=== PATIENT | female | born 1985 | race African-American/Black ===

== ENCOUNTER 2016-09-12 18:28 | Emergency (ER) | payer OTHER ==
[2016-09-12 18:34] VITALS: BP 159/110
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
[2016-09-12] MEDS ORDERED: ACETAMINOPHEN 325 MG TABLET PO ONE (19:01)
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
[2016-09-12] MEDS ORDERED: HYDROCODONE/ACETAMINOPHEN 5-325 MG 6 TAB/DSPK PO PRN (21:27)
== END 2016-09-12 21:30 | disposition home or self-care (01) ==
LOC: ER 18:28
DX: O26.93 Pregnancy related conditions, unspecified, third trimester (principal); R51 Headache; M54.5 Low back pain; R42 Dizziness and giddiness; H53.8 Other visual disturbances; V89.2XXA Person injured in unspecified motor-vehicle accident, traffic, initial encounter; Z3A.00 Weeks of gestation of pregnancy not specified; Z88.2 Allergy status to sulfonamides
CPT/HCPCS: 70450; 72110; 99284

== ENCOUNTER 2017-01-05 21:12 | Emergency (ER) | payer OTHER ==
--- NOTE | 2017-01-05 22:37 | ER Document Report ---
ED General - General Chief Complaint: Vaginal Bleeding Stated Complaint: VAGINAL BLEEDING Time Seen by Provider: 01/05/17 22:24 Notes: Patient is a 31-year-old female presents with complaint of heavy vaginal bleeding. No fevers. Mild abdominal pain that radiates into her right back. She says bleeding is been there for 2 weeks and has been intermittently heavy. She says she has checked 5 tests have all been negative. She does have an IUD in place. IUD is been there for 6 years. It is a 10 year IUD. She does have a previous history of ultrasound. She brought her previous ultrasound results from the past. Does show that she has a 4 cm fibroid in the fundus as well as ovarian cyst. She has no other complaints this time. She has never had abnormal vaginal bleeding before. She says her menstrual periods are usually very regular. She is sexually active. No abnormal discharge. TRAVEL OUTSIDE OF THE [place] IN LAST 30 DAYS: No - Related Data Allergies/Adverse Reactions: AGAPITO Inhibitors Allergy (Verified 01/05/17 21:17) Sulfa (Sulfonamide Antibiotics) Allergy (Verified 01/05/17 21:17) Past Medical History - Social History Smoking Status: Unknown if Ever Smoked Frequency of alcohol use: None Drug Abuse: None Family History: Reviewed & Not Pertinent Patient has suicidal ideation: No Patient has homicidal ideation: No - Past Medical History Cardiac Medical History: Reports: Hx Hypertension Pulmonary Medical History: Reports: Hx Asthma, Hx Bronchitis, Hx Pneumonia Renal/ Medical History: Denies: Hx Peritoneal Dialysis GI Medical History: Reports: Hx Irritable Bowel Past Surgical History: Reports: Hx Section - Immunizations Immunizations up to date: Yes Hx Diphtheria, Pertussis, Tetanus Vaccination: Yes Review of Systems - Review of Systems Notes: My Normal Review Basic REVIEW OF SYSTEMS: CONSTITUTIONAL : Denies fever, chills, or sweats. Denies recent illness. RESPIRATORY: Denies cough, cold, or chest congestion. Denies shortness of breath, difficulty breathing, or wheezing. GASTROINTESTINAL: Denies abdominal pain. Denies nausea, vomiting, or diarrhea. Denies constipation. Last BM: GENITOURINARY: Denies difficulty urinating, painful urination, burning, frequency, or blood in urine. FEMALE GENITOURINARY: Abnormal vaginal bleeding. MUSCULOSKELETAL: Denies neck or back pain or joint pain or swelling. SKIN: Denies rash or skin lesions. HEMATOLOGIC : Denies easy bruising or bleeding. ALL OTHER SYSTEMS REVIEWED AND NEGATIVE. Physical Exam - Vital signs Vitals: Temp Pulse Resp BP Pulse Ox 97.9 F 75 18 130/89 H 97 01/05/17 21:17 01/05/17 21:17 01/05/17 21:17 01/05/17 21:17 01/05/17 21:17 - Notes Notes: General Appearance: Well nourished, alert, cooperative, no acute distress, no obvious discomfort. Well-appearing. Vitals: reviewed, See vital signs table. Eyes: PERRL, EOMI, Conjuctiva clear Neck: Supple, no neck tenderness, No thyromegaly Lungs: No wheezing, No rales, No rhonci, No accessory muscle use, good air exchange bilaterally. Heart: Normal rate, Regular rythm, No murmur, no rub Abdomen: Normal BS, soft, No rigidity, mild suprapubic and left lower quadrant abdominal tenderness palpation., No guarding, no rebound, no abdominal masses, no organomegaly Pelvic : Normal external genitalia. Blood in vaginal vault. No clots. No vaginal laceration seen. No clots seen in cervix. IUD string not seen. Extremities: strength 5/5 in all extremities, good pulses in all extremities, no swelling or tenderness in the extremities, no edema. Skin: warm, dry, appropriate color, no rash Neuro: speech clear, oriented x 3, normal affect, responds appropriately to questions. Course - Re-evaluation Re-evalutation: 01/06/17 01:43 Patient's ultrasound shows multiple fibroids which is probably contributing to her bleeding. Her IUD is also low in the uterus. This could have some contribution to her bleeding. I cannot see the string for IUD on exam. She does have a archeology faculty member that she follows with closely. I will have her call them first thing Sunday morning for reevaluation and for further management of the malpositioned IUD and her continuous bleeding and fibroids. I did talk her length about tranexamic acid. I informed her that this will increase her risk of clotting. I did talked her length about this and she still wants to try the medication. The risk of clotting is low and therefore I think it is okay to attempt this medication which is why did offer. Patient is okay with the risks and wants to go forward with trying medication. He has been prescribed. I encouraged her return to ER immediately if she has heavy bleeding, lightheadedness, dizziness, leg pain, leg swelling, chest pain, shortness of breath, severe headache. Patient agrees with plan will be discharged home. Dictation of this chart was performed using voice recognition software; therefore, there may be some unintended grammatical errors. - Vital Signs Vital signs: Temp Pulse Resp BP Pulse Ox 97.9 F 75 18 130/89 H 97 01/05/17 21:17 01/05/17 21:17 01/05/17 21:17 01/05/17 21:17 01/05/17 21:17 - Laboratory Result Diagrams: 01/05/17 23:10 Laboratory results interpreted by me: 01/05/17 23:10 Hgb 10.7 L Hct 31.2 L RDW 14.1 H Discharge - Discharge Additional Instructions: Your ultrasound showed that you have multiple fibroids. Fibroids will cause abnormal vaginal bleeding. Your IUD is also lower in the uterus which is lower than it is supposed to be. Please call your Tierce Filler Sunday morning to make a close follow up appointment. please bring your Ultrasound report with you so they can determine if the want to readjust your IUD or remove it and replace it. Please return to the ER immediately if you have increase in bleeding, difficulty breathing, light headedness, dizziness, fevers, or feel unwell. As discussed with you the medicine I have prescribed you can put you at a increased risk of blood clots; therefore, it is very important you return to the ER immediately if you have leg pain and swelling, chest pain, difficulty breathing, or severe headache. Prescriptions: Tranexamic Acid 1,300 mg PO TID 4 Days tablet Forms: Return to Work
[2017-01-05 23:19] LABS: ABSOLUTE EOSINOPHILS # (AUTO) 0.1 10^3/uL (0.0-0.6); ABSOLUTE LYMPHOCYTES (AUTO) 3.6 10^3/uL (0.5-4.7); ABSOLUTE MONOCYTES (AUTO) 0.4 10^3/uL (0.1-1.4); ABSOLUTE NEUT (AUTO) 4.2 10^3/uL (1.7-8.2); BASOPHILS % (AUTO) 0.5 % (0-2); EOSINOPHILS % (AUTO) 0.7 % (0-6); HEMATOCRIT 31.2 % (36.0-47.0); HEMOGLOBIN 10.7 g/dL (12.0-15.5); HGB HCT DIFFERENCE 0.9; LYMPHOCYTES % (AUTO) 43.6 % (13-45); MEAN CORPUSCULAR HEMOGLOBIN 28.1 pg (27.0-33.4); MEAN CORPUSCULAR HGB CONC 34.2 g/dL (32.0-36.0); MEAN CORPUSCULAR VOLUME 82 fl (80-97); MONOCYTES % (AUTO) 5.1 % (3-13); RED BLOOD COUNT 3.79 10^6/uL (3.72-5.28); RED CELL DISTRIBUTION WIDTH 14.1 % (11.5-14.0); SEGMENTED NEUTROPHILS % (AUTO) 50.1 % (42-78); WHITE BLOOD COUNT 8.3 10^3/uL (4.0-10.5)
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
[2017-01-06 02:33] VITALS: BP 119/90
== END 2017-01-06 02:34 | disposition home or self-care (01) ==
LOC: ER 21:12
DX: N93.9 Abnormal uterine and vaginal bleeding, unspecified (principal); D25.9 Leiomyoma of uterus, unspecified; R10.9 Unspecified abdominal pain; M54.9 Dorsalgia, unspecified
CPT/HCPCS: 36415; 76830; 84703; 85025; 93976; 99284

== ENCOUNTER 2017-09-17 19:06 | Emergency (ER) | payer SELFPAY ==
[2017-09-17] MEDS ORDERED: HYDROMORPHONE HCL INJ/PF 2 MG/ML AMPULE IV ONE (20:04)
[2017-09-17] MEDS ORDERED: METOCLOPRAMIDE HCL INJ/PF 10 MG/2 ML SDV IV ONE (20:05)
--- NOTE | 2017-09-17 20:08 | ER Document Report ---
ED General - General Chief Complaint: Abdominal Pain Stated Complaint: VOMITING Time Seen by Provider: 09/17/17 19:55 Mode of Arrival: Ambulatory Information source: Patient Notes: 32-year-old female with hypertension presents with complaint of left lower quadrant pain that started 15 hours prior to arrival. Patient states that she awoke this morning at 5 AM and had a stabbing, initially intermittent left lower quadrant abdominal pain. Shortly afterwards patient developed nausea, vomiting. She states that she has been vomiting all day and unable to tolerate any food or fluids. Patient did have one loose stool prior to arrival. She denies any black or bloody stools. She denies prior similar symptoms. She states that she went to bed last night feeling well. Patient was recently treated for tonsillitis and completed her amoxicillin 5 days ago. She denies recent travel, sick contacts. Patient's surgical history includes a . She currently has an IUD in place. Her last menstrual period was September 06, 2017 TRAVEL OUTSIDE OF THE [place] IN LAST 30 DAYS: No - HPI Onset: This morning Onset/Duration: Gradual, Persistent, Worse Quality of pain: Stabbing Severity: Moderate Pain Level: 2 Associated symptoms: Nausea, Vomiting. denies: Chest pain, Fever, Shortness of breath Exacerbated by: Denies Relieved by: Denies Similar symptoms previously: No Recently seen / treated by doctor: Yes - Related Data Allergies/Adverse Reactions: AGAPITO Inhibitors Allergy (Verified 01/05/17 21:17) Sulfa (Sulfonamide Antibiotics) Allergy (Verified 01/05/17 21:17) Past Medical History - General Information source: Patient, [facility] Records - Social History Smoking Status: Never Smoker Frequency of alcohol use: Occasional Drug Abuse: None Lives with: Family Family History: Reviewed & Not Pertinent - Past Medical History Cardiac Medical History: Reports: Hx Hypertension Pulmonary Medical History: Reports: Hx Asthma, Hx Bronchitis, Hx Pneumonia Renal/ Medical History: Denies: Hx Peritoneal Dialysis GI Medical History: Reports: Hx Irritable Bowel Past Surgical History: Reports: Hx Section - Immunizations Immunizations up to date: Yes Hx Diphtheria, Pertussis, Tetanus Vaccination: Yes Review of Systems - Review of Systems Notes: REVIEW OF SYSTEMS: CONSTITUTIONAL : Denies fever, chills, or sweats. Denies recent illness. Denies weight loss, recent hospitalizations. EENT: Denies visual changes, eye pain. Denies nasal or sinus congestion or discharge. Denies sore throat, oral lesions, difficulty swallowing. CARDIOVASCULAR: Denies chest pain. Denies palpitations. Denies lower extremity edema. RESPIRATORY: Denies cough, cold, or chest congestion. Denies shortness of breath, wheezing. GASTROINTESTINAL: Denies blood in vomitus, stools, or per rectum. Denies black, tarry stools. Denies constipation. GENITOURINARY: Denies difficulty urinating, painful urination, frequency, blood in urine, or vaginal discharge. MUSCULOSKELETAL: Denies back or neck pain or stiffness. Denies joint pain or swelling. SKIN: Denies rash, lesions or sores. HEMATOLOGIC : Denies easy bruising or bleeding. LYMPHATIC: Denies swollen glands. NEUROLOGICAL: Denies confusion or altered mental status. Denies passing out or loss of consciousness. Denies dizziness or lightheadedness. Denies headache. Denies weakness or paralysis. Denies problems difficulty with ambulation, slurred speech. Denies sensory loss, numbness, or tingling. Denies seizures. PSYCHIATRIC: Denies anxiety or stress. Denies depression, suicidal ideation, or homicidal ideation. Denies visual or auditory hallucinations. Physical Exam - Vital signs Vitals: Temp Pulse Resp BP Pulse Ox 98.6 F 65 16 141/101 H 100 09/17/17 19:10 09/17/17 19:10 09/17/17 19:10 09/17/17 19:10 09/17/17 19:10 - Notes Notes: PHYSICAL EXAMINATION: GENERAL: Well-appearing, well-nourished and in no acute distress. HEAD: Atraumatic, normocephalic. EYES: Pupils equal round and reactive to light, extraocular movements intact, conjunctiva are normal. ENT: Nares patent, oropharynx clear without exudates. Moist mucous membranes. NECK: Normal range of motion, supple without lymphadenopathy LUNGS: Breath sounds clear to auscultation bilaterally and equal. No wheezes rales or rhonchi. HEART: Regular rate and rhythm without murmurs ABDOMEN: tenderness to palpation of the left lower quadrant without guarding or rebound. Female : No external vaginal lesions. No vaginal bleeding. Thin white discharge. Left adnexal tenderness. Musculoskeletal: Normal range of motion, no pitting or edema. No cyanosis. NEUROLOGICAL: Cranial nerves grossly intact. Normal speech, normal gait. Normal sensory, motor exams PSYCH: Normal mood, normal affect. SKIN: Warm, Dry, normal turgor, no rashes or lesions noted. Course - Re-evaluation Re-evalutation: 09/18/17 20:39 32-year-old female with hypertension presents with complaint of left lower quadrant pain that started 15 hours prior to arrival. Patient states that she awoke this morning at 5 AM and had a stabbing, initially intermittent left lower quadrant abdominal pain. Shortly afterwards patient developed nausea, vomiting. Upon arrival patient is in significant pain, moderate distress. She is unable to get comfortable on the bed. She did receive Zofran, Dilaudid during her ED course. Pelvic exam was significant for left adnexal tenderness. Patient found to have bacterial vaginosis and Flagyl was given for this. CT of the abdomen and pelvis was obtained and did show a uterine fibroid and left ovarian cysts and recommended ultrasound which we did obtain but was called a suboptimal study and recommendations to repeat the ultrasound were given. On reevaluation patient is resting more comfortably. Patient made aware of CAT scan and ultrasound findings as well as the findings of bacterial vaginosis. Patient was discharged home with Motrin, Zofran, Flagyl. She was advised to follow-up with her [employer]LECTION CLERK who has been following her for the uterine fibroids. Patient provided the opportunity to ask questions, and express concerns. Discharge instructions discussed. Patient is agreeable with discharge home. Return indications explained and discussed with the patient who displays understanding. Patient encouraged to return to the emergency department immediately with any concerns. - Vital Signs Vital signs: Temp Pulse Resp BP Pulse Ox 98.6 F 62 20 146/102 H 98 09/17/17 19:10 09/17/17 23:42 09/17/17 23:42 09/18/17 00:00 09/17/17 22:25 - Laboratory Result Diagrams: 09/17/17 20:30 09/17/17 20:30 Laboratory results interpreted by me: 09/17/17 09/17/17 20:30 20:30 WBC 10.7 H Hgb 11.8 L Hct 35.3 L RDW 14.1 H BUN 6 L Total Protein 9.4 H - Diagnostic Test Radiology reviewed: Image reviewed, Reports reviewed Discharge - Discharge Clinical Impression: Enteritis, Bacterial vaginosis Ovarian cyst Qualifiers: Laterality: left Qualified Code(s): N83.202 - Unspecified ovarian cyst, left side Uterine fibroid Qualifiers: Uterine leiomyoma location: unspecified location Qualified Code(s): D25.9 - Leiomyoma of uterus, unspecified Condition: Good Disposition: HOME, SELF-CARE Instructions: Colitis, Nonspecific ([facility]), Ovarian Cyst ([facility]), Vaginosis, Bacterial ([facility]) Additional Instructions: Your ultrasound today showed uterine fibroids and ovarian cysts. Ovary was not clearly visualized and it is recommended that you have a repeat ultrasound within the next 7-10 days. Please follow-up with your [employer]LECTION CLERK as soon as you are able. Prescriptions: Ibuprofen [Motrin 600 Mg Tablet] 600 mg PO TID #15 tablet Metronidazole [Flagyl 500 mg Tablet] 500 mg PO BID #14 tablet Ondansetron [Zofran Odt 4 mg Tablet] 1 - 2 tab PO Q4H PRN #15 tab.rapdis PRN Reason: For Nausea/Vomiting Referrals: MARY GARCIA MD [ACTIVE STAFF] - Follow up as needed
[2017-09-17 20:45] LABS: ABSOLUTE EOSINOPHILS # (AUTO) 0.1 10^3/uL (0.0-0.6); ABSOLUTE LYMPHOCYTES (AUTO) 2.5 10^3/uL (0.5-4.7); ABSOLUTE MONOCYTES (AUTO) 0.5 10^3/uL (0.1-1.4); ABSOLUTE NEUT (AUTO) 7.7 10^3/uL (1.7-8.2); BASOPHILS % (AUTO) 0.2 % (0-2); EOSINOPHILS % (AUTO) 0.6 % (0-6); HEMATOCRIT 35.3 % (36.0-47.0); HEMOGLOBIN 11.8 g/dL (12.0-15.5); LYMPHOCYTES % (AUTO) 23.2 % (13-45); MEAN CORPUSCULAR HEMOGLOBIN 27.2 pg (27.0-33.4); MEAN CORPUSCULAR HGB CONC 33.5 g/dL (32.0-36.0); MEAN CORPUSCULAR VOLUME 81 fl (80-97); MONOCYTES % (AUTO) 4.4 % (3-13); PLATELET COUNT 363 10^3/uL (150-450); RED BLOOD COUNT 4.34 10^6/uL (3.72-5.28); RED CELL DISTRIBUTION WIDTH 14.1 % (11.5-14.0); SEGMENTED NEUTROPHILS % (AUTO) 71.6 % (42-78); TOTAL CELLS COUNTED % (AUTO) 100 %; WHITE BLOOD COUNT 10.7 10^3/uL (4.0-10.5)
[2017-09-17 21:02] LABS: APPEARANCE,URINE CLEAR; BILIRUBIN,URINE NEGATIVE (NEGATIVE); COLOR,URINE YELLOW; GLUCOSE, URINE NEGATIVE (NEGATIVE); KETONES,URINE NEGATIVE (NEGATIVE); LEUKOCYTE ESTERASE,URINE NEGATIVE (NEGATIVE); NITRITE,URINE NEGATIVE (NEGATIVE); PROTEIN,URINE NEGATIVE (NEGATIVE); URINE SPECIFIC GRAVITY 1.013; UROBILINOGEN,URINE NEGATIVE mg/dL (<2.0)
[2017-09-17 21:03] LABS: ALANINE AMINOTRANSFERASE 13 U/L (9-52); ALBUMIN 4.1 g/dL (3.5-5.0); ALKALINE PHOSPHATASE 87 U/L (38-126); ANION GAP 13 (5-19); ASPARTATE AMINO TRANSFERASE 20 U/L (14-36); BILIRUBIN,DIRECT 0.3 mg/dL (0.0-0.4); BILIRUBIN,TOTAL 0.3 mg/dL (0.2-1.3); BLOOD UREA NITROGEN 6 mg/dL (7-20); CALCIUM 9.5 mg/dL (8.4-10.2); CARBON DIOXIDE 28 mmol/L (22-30); CHLORIDE 103 mmol/L (98-107); GLUCOSE 87 mg/dL (75-110); LIPASE 145.8 U/L (23-300); POTASSIUM 3.9 mmol/L (3.6-5.0); SODIUM 143.6 mmol/L (137-145); TOTAL PROTEIN 9.4 g/dL (6.3-8.2)
[2017-09-17 22:29] LABS: BACTERIA (WET MOUNT) 4+ BACTERIA SEEN; EPITHELIALS (WET MOUNT) 3+ EPITHELIALS SEEN; T.VAGINALIS (WET MOUNT) NO TRICHOMONAS SEEN; WBCS (WET MOUNT) 1+ WBCS SEEN; YEAST (WET MOUNT) YEAST SEEN
[2017-09-17] MEDS ORDERED: METRONIDAZOLE 500 MG TABLET PO ONE (22:31)
[2017-09-17] MEDS ORDERED: FLUCONAZOLE 100 MG TABLET PO ONE (22:43)
[2017-09-17 23:54] LABS: CHLAM PCR NOT DETECTED (NOT DETECT); GON PCR NOT DETECTED (NOT DETECT)
--- NOTE | 2017-09-18 00:18 | RADIOLOGY REPORT (SQ) ---
EXAM DESCRIPTION: CT ABDOMEN PELVIS WITH IV CONTRAST COMPLETED DATE/TME: 09/17/2017 20:05 CLINICAL HISTORY: 32 years, Female, Left lower quadrant abdominal pain COMPARISON: None TECHNIQUE: Axial CT images were obtained after the administration of IV contrast. Sagittal and coronal reformats were performed. [facility] 1794 Images stored on PACS. All CT scanners at this facility use dose modulation, iterative reconstruction, and/or weight based dosing when appropriate to reduce radiation dose to as low as reasonably achievable (ALARA). [facility]: Dose Right [facility]: CareDose [facility]: Dose Right [facility]: Teradose 4D [facility]: Between Digital LIMITATIONS: None. FINDINGS: The lung bases are clear. The liver, gallbladder, pancreas, spleen, and adrenal glands are unremarkable. Both kidneys appear unremarkable. There is no evidence of nephrolithiasis or hydronephrosis. There is no intraperitoneal free air. There is a mild amount of free fluid. There is no lymphadenopathy. The stomach is unremarkable. There is mild thickening of the small bowel. The appendix is normal. The colon appears unremarkable. There is an exophytic fibroid along the right anterior aspect of the uterus which measures 7.3 x 6.0 cm. An IUD is in place. There are two left ovarian cysts, the largest measures 5.9 x 5.0 cm. The second ovarian cyst measures approximately 3.8 x 3.7 cm. There are no lytic or blastic bone lesions. The soft tissues are unremarkable. IMPRESSION: Mild thickening of the small bowel, which is nonspecific and may be due to an enteritis. Uterine fibroid. Left ovarian cysts. Recommend further evaluation with ultrasound. TECHNICAL DOCUMENTATION: Quality ID # [id number]: Final reports with documentation of one or more dose reduction techniques (e.g., Automated exposure control, adjustment of the mA and/or kV according to patient size, use of iterative reconstruction technique) 2010 [employer]- All Rights Reserved
--- NOTE | 2017-09-18 00:35 | RADIOLOGY REPORT (SQ) ---
EXAM DESCRIPTION: US PELVIS COMPLETED DATE/TME: 09/17/2017 22:05 CLINICAL HISTORY: 32 years, Female, Acute left lower quadrant abdominal pain COMPARISON: CT done on same date TECHNIQUE: Transvaginal ultrasound of the pelvis with Doppler images LIMITATIONS: None. FINDINGS: There uterus measures 11.0 x 7.1 cm. There are uterine fibroids that measures 6.4 x 5.4 x 5.2 cm and 4.0 x 3.8 x 3.8 cm. An IUD is in place. The endometrial thickness is not well seen. The cervix measures 2.3 cm in length. Both ovaries are not uniquely identified. A mild amount of free fluid is noted. IMPRESSION: Uterine fibroids. The left ovarian cysts seen on the CT are not well seen on this exam. Recommend repeat ultrasound for further evaluation. 2011 [employer]- All Rights Reserved
[2017-09-18 00:38] VITALS: BP 146/102
--- NOTE | 2017-09-18 00:41 | ER Document Report ---
ED General - General Chief Complaint: Abdominal Pain Stated Complaint: VOMITING Time Seen by Provider: 09/17/17 19:55 Mode of Arrival: Ambulatory TRAVEL OUTSIDE OF THE [place] IN LAST 30 DAYS: No - Related Data Allergies/Adverse Reactions: AGAPITO Inhibitors Allergy (Verified 01/05/17 21:17) Sulfa (Sulfonamide Antibiotics) Allergy (Verified 01/05/17 21:17) Past Medical History - General Information source: Patient, [facility] Records - Social History Smoking Status: Never Smoker Chew tobacco use (# tins/day): No Frequency of alcohol use: Occasional Drug Abuse: None Lives with: Family Family History: Reviewed & Not Pertinent Patient has suicidal ideation: No Patient has homicidal ideation: No - Past Medical History Cardiac Medical History: Reports: Hx Hypertension Pulmonary Medical History: Reports: Hx Asthma, Hx Bronchitis, Hx Pneumonia Renal/ Medical History: Denies: Hx Peritoneal Dialysis GI Medical History: Reports: Hx Irritable Bowel Past Surgical History: Reports: Hx Section - Immunizations Immunizations up to date: Yes Hx Diphtheria, Pertussis, Tetanus Vaccination: Yes Physical Exam - Vital signs Vitals: Temp Pulse Resp BP Pulse Ox 98.6 F 65 16 141/101 H 100 09/17/17 19:10 09/17/17 19:10 09/17/17 19:10 09/17/17 19:10 09/17/17 19:10 Course - Vital Signs Vital signs: Temp Pulse Resp BP Pulse Ox 98.6 F 65 16 146/102 H 98 09/17/17 19:10 09/17/17 19:10 09/17/17 19:10 09/18/17 00:00 09/17/17 22:25 - Laboratory Result Diagrams: 09/17/17 20:30 09/17/17 20:30 Laboratory results interpreted by me: 09/17/17 09/17/17 20:30 20:30 WBC 10.7 H Hgb 11.8 L Hct 35.3 L RDW 14.1 H BUN 6 L Total Protein 9.4 H Discharge - Discharge Clinical Impression: Enteritis Ovarian cyst Qualifiers: Laterality: left Qualified Code(s): N83.202 - Unspecified ovarian cyst, left side Uterine fibroid Qualifiers: Uterine leiomyoma location: unspecified location Qualified Code(s): D25.9 - Leiomyoma of uterus, unspecified Condition: Good Disposition: HOME, SELF-CARE Instructions: Ovarian Cyst ([facility]), Colitis, Nonspecific ([facility]) Additional Instructions: Your ultrasound today showed uterine fibroids and ovarian cysts. Ovary was not clearly visualized and it is recommended that you have a repeat ultrasound within the next 7-10 days. Please follow-up with your TOLL TRANSMISSION WORKER as soon as you are able. Referrals: MARY GARCIA MD [ACTIVE STAFF] - Follow up as needed
[2017-09-18] MEDS ORDERED: KETOROLAC TROMETHAMINE INJ/PF 30 MG/1 ML SDV IV ONE (00:44)
== END 2017-09-18 01:44 | disposition home or self-care (01) ==
LOC: ER 19:06
DX: K52.9 Noninfective gastroenteritis and colitis, unspecified (principal); D25.9 Leiomyoma of uterus, unspecified; N83.202 Unspecified ovarian cyst, left side; I10 Essential (primary) hypertension; J45.909 Unspecified asthma, uncomplicated; Z88.8 Allergy status to other drugs, medicaments and biological substances; Z88.2 Allergy status to sulfonamides; Z87.19 Personal history of other diseases of the digestive system
CPT/HCPCS: 99284; 96374; 96375; 36415; 87210; 83690; 85025; 81025; 80053; 81001; 87491; 87591; 76830; 93976; 74177; J1885; J2765; J1170

== ENCOUNTER → 2018-12-28 | Outpatient (CLI) | payer MEDICAID, OTHER ==
--- NOTE | 2018-12-28 10:20 | RADIOLOGY REPORT (SQ) ---
EXAM DESCRIPTION: CT ABD/PELVIS NO ORAL OR IV COMPLETED DATE/TIME: 12/28/2018 9:40 am REASON FOR STUDY: (D25.2)SUBSEROSAL LEIOMYOMA OF UTERUS;(T83.32XA)DISPLACEMENT OF INTRAUTERIN D25.2 SUBSEROSAL LEIOMYOMA OF UTERUS T83.32XA DISPLACEMENT OF INTRAUTERINE CONTRACEPTIVE DEVICE, COMPARISON: 09/17/2017 TECHNIQUE: CT scan of the abdomen and pelvis performed without intravenous or oral contrast. Images reviewed with lung, soft tissue, and bone windows. Reconstructed coronal and sagittal MPR images revi ewed. All images stored on PACS. All CT scanners at this facility use dose modulation, iterative reconstruction, and/or weight based d osing when appropriate to reduce radiation dose to as low as reasonably achievable (ALARA). [facility]: Dose Right [facility]: CareDose [facility]: Dose Right [facility]: Teradose 4D [facility]: [employer] RADIATION DOSE: mGy. LIMITATIONS: None. FINDINGS: LOWER CHEST: No significant findings. No nodules or infiltrates. NON-CONTRASTED LIVER, SPLEEN, ADRENALS: Evaluation limited by lack of IV contrast. No identified sign ificant masses. PANCREAS: No masses. No peripancreatic inflammatory changes. GALLBLADDER: No identified stones by CT criteria. No inflammatory changes to suggest cholecystitis. RIGHT KIDNEY AND URETER: No suspicious masses. Assessment limited by lack of IV contrast. No signif icant calcifications. No hydronephrosis or hydroureter. LEFT KIDNEY AND URETER: No suspicious masses. Assessment limited by lack of IV contrast. No signifi cant calcifications. No hydronephrosis or hydroureter. AORTA AND RETROPERITONEUM: No aneurysm. No retroperitoneal masses or adenopathy. BOWEL AND PERITONEAL CAVITY: No obvious masses or inflammatory changes. No free fluid. APPENDIX: Normal. PELVIS, BLADDER, AND ABDOMINAL WALL:Extremely large uterine fibroid maximum diameter 11 cm stable. T his extends from the right word uterus superiorly. There also uterine fibroids which are not exophyt ic and deviate the indwelling IUD. All stable. Left ovarian cyst is 4.6 cm compare E to 8 cm previously. BONES: No significant findings. OTHER: No other significant finding. IMPRESSION: Massive exophytic uterine fibroid extending superior rightward. Additional uterine fibr oids which are not exophytic but which deviates the IUD. Decrease in size of the left ovarian cyst. COMMENT: Quality ID # 436: Final reports with documentation of one or more dose reduction techniques (e.g., Automated exposure control, adjustment of the mA and/or kV according to patient size, use of iterative reconstruction technique) TECHNICAL DOCUMENTATION: JOB ID: [id number] [employer]- All Rights Reserved Reading location - IP/workstation name: [email or web address]
== END ==
LOC: RAD 08:51
PROVIDERS: ATTEND Student in an Organized Health Care Education/Training Program
DX: D25.2 Subserosal leiomyoma of uterus (principal); T83.32XA Displacement of intrauterine contraceptive device, initial encounter
CPT/HCPCS: 74176

== ENCOUNTER → 2019-12-25 | Outpatient (CLI) | payer OTHER, MEDICAID ==
--- NOTE | 2019-12-25 13:59 | RADIOLOGY REPORT (SQ) ---
EXAM DESCRIPTION: KNEE RIGHT 4 VIEWS IMAGES COMPLETED DATE/TIME: 12/25/2019 1:12 pm REASON FOR STUDY: ANKYLOSIS, RIGHT KNEE M24.661 ANKYLOSIS, RIGHT KNEE COMPARISON: None. NUMBER OF VIEWS: Four views. TECHNIQUE: AP, lateral, and both oblique radiographic images acquired of the right knee. LIMITATIONS: None. FINDINGS: MINERALIZATION: Normal. BONES: No acute fracture or dislocation. No worrisome bone lesions. JOINT: No effusion. SOFT TISSUES: No soft tissue swelling. No radio-opaque foreign body. OTHER: No other significant finding. IMPRESSION: NEGATIVE STUDY OF THE RIGHT KNEE. NO RADIOGRAPHIC EVIDENCE OF ACUTE INJURY. TECHNICAL DOCUMENTATION: JOB ID: [id number] 2010 [employer]- All Rights Reserved Reading location - IP/workstation name: [email or web address]
== END ==
LOC: OD 12:57
PROVIDERS: ATTEND Internal Medicine
DX: M24.661 Ankylosis, right knee (principal)